=== PATIENT | male | born 1975 | race Caucasian/White ===

== ENCOUNTER 2016-12-11 12:48 | Emergency (ER) | payer OTHER ==
[2016-12-11 15:21] LABS: BUN/CREATININE RATIO 24 (0-10)
[2016-12-11 15:28] LABS: HEMOGLOBIN 14.7 gm/dl (14.0-17.5); RED BLOOD COUNT 4.9 M/UL (4.20-5.50); WHITE BLOOD COUNT 5.4 K/UL (4.5-11.0)
== END 2016-12-11 17:35 | disposition home or self-care (01) ==
LOC: ER1 12:48
PROVIDERS: Nurse Practitioner Family
DX: R10.32 Left lower quadrant pain (principal); R11.0 Nausea; F17.290 Nicotine dependence, other tobacco product, uncomplicated
CPT/HCPCS: 36415; 80053; 81001; 85025; 87086; 96360; 99284; J7030; J7050; Q9962

== ENCOUNTER 2021-08-18 10:38 | Emergency (ER) | payer SELFPAY | END 2021-08-18 13:40 | disposition home or self-care (01) | LOC: ER1 10:38 | DX: S61.412A Laceration without foreign body of left hand, initial encounter (principal); W45.8XXA Other foreign body or object entering through skin, initial encounter; Y99.0 Civilian activity done for income or pay | CPT/HCPCS: 12002; 99283 ==

== ENCOUNTER → 2021-08-18 | Emergency (ER) | payer OTHER | END | disposition left against medical advice (07) | LOC: ER1 09:13 | DX: Z53.21 Procedure and treatment not carried out due to patient leaving prior to being seen by health care provider (principal) ==